=== PATIENT | male | born 1985 | race American Indian/Alaskan Native ===

== ENCOUNTER 2018-11-19 09:48 | Emergency (ER) | payer SELFPAY ==
[2018-11-19 10:01] VITALS: BP 138/86
--- NOTE | 2018-11-19 10:37 | Emergency Department Report ---
Blank Doc - Documentation Documentation: This is a 33-year-old male that presents with dental pain, sore throat with sw elling. Patient state he is currently taking amoxicillin that was here 3 days ago for a dental pain. He stated that it is getting worse appointment now that he has some difficulty breathing and able to open mouth. Upon exam patient has severe swelling and trismus. Patient was sent to the main ED for possible airway compromise. I did put in laboratory orders as well as CT scan with contrast of neck. Patient also is receiving clindamycin, Decadron, normal saline.
[2018-11-19] MEDS ORDERED: CLEOCIN IM ONE (11:12)
[2018-11-19] MEDS ORDERED: IBUPROFEN PO ONE (11:13)
--- NOTE | 2018-11-19 11:29 | Emergency Department Report ---
ED ENT HPI - General Chief complaint: Dental/Oral Stated complaint: NAUSE Time Seen by Provider: 11/19/18 10:01 Source: patient Mode of arrival: Ambulatory Limitations: No Limitations - History of Present Illness Initial comments: This is a 33-year-old male nontoxic, well nourished in appearance, no acute signs of distress presents to the ED with c/o of right lower toothache 3 weeks. Patient stated went to dentist and only taken 1 dose of amoxicillin but denies finishing medications. Patient describes toothache as aching level of 8 out of 10. Patient stated has some facial swelling. Patient denies any numbness, tingling, fever, chills, headache, stiff neck, abdominal pain, chest pain, shortness of breath. Patient denies any drug allergies or significant past medical history. MD complaint: tooth pain -: week(s) Location: tooth # 1 - pain here Severity: mild Severity scale (0 -10): 8 Quality: aching Consistency: constant Improves with: none Worsens with: none Context- Dental: history of dental caries, poor dental care Associated Symptoms: gum swelling, toothache. denies: fever, cough, pain with swallowing, sore throat, tinnitus, hearing loss, discharge from ear, rhinorrhea - Related Data Previous Rx's Medication Instructions Recorded Last Taken Type Acetaminophen/Codeine [Tylenol 1 tab PO Q6H PRN #12 tab 11/19/18 Unknown Rx /Codeine # 3 tab] Chlorhexidine Mouthwash [Peridex] 15 ml MM BID #1 bottle 11/19/18 Unknown Rx Clindamycin [Clindamycin CAP] 300 mg PO Q8H #21 cap 11/19/18 Unknown Rx Prednisone [predniSONE 10 mg 10 mg PO .TAPER #1 tab.ds.pk 11/19/18 Unknown Rx (6-Day Pack, 21 Tabs)] Allergies Allergy/AdvReac Type Severity Reaction Status Date / Time No Known Allergies Allergy Verified 11/19/18 10:01 ED Dental HPI - General Chief complaint: Dental/Oral Stated complaint: NAUSE Time Seen by Provider: 06/30/19 10:01 Source: patient Mode of arrival: Ambulatory Limitations: No Limitations - Related Data Previous Rx's Medication Instructions Recorded Last Taken Type Acetaminophen/Codeine [Tylenol 1 tab PO Q6H PRN #12 tab 11/19/18 Unknown Rx /Codeine # 3 tab] Chlorhexidine Mouthwash [Peridex] 15 ml MM BID #1 bottle 11/19/18 Unknown Rx Clindamycin [Clindamycin CAP] 300 mg PO Q8H #21 cap 11/19/18 Unknown Rx Prednisone [predniSONE 10 mg 10 mg PO .TAPER #1 tab.ds.pk 11/19/18 Unknown Rx (6-Day Pack, 21 Tabs)] Allergies Allergy/AdvReac Type Severity Reaction Status Date / Time No Known Allergies Allergy Verified 11/19/18 10:01 ED Review of Systems ROS: Stated complaint: NAUSE Other details as noted in HPI Constitutional: denies: chills, fever Eyes: denies: eye pain, eye discharge, vision change ENT: dental pain. denies: ear pain, throat pain Respiratory: denies: cough, shortness of breath, wheezing Cardiovascular: denies: chest pain, palpitations Endocrine: no symptoms reported Gastrointestinal: denies: abdominal pain, nausea, diarrhea Genitourinary: denies: urgency, dysuria Musculoskeletal: denies: back pain, joint swelling, arthralgia Skin: denies: rash, lesions Neurological: denies: headache, weakness, paresthesias Psychiatric: denies: anxiety, depression Hematological/Lymphatic: denies: easy bleeding, easy bruising ED Past Medical Hx - Past Medical History Previous Medical History?: Yes - Surgical History Past Surgical History?: No - Social History Smoking Status: Never Smoker Substance Use Type: Alcohol, Marijuana - Medications Home Medications: Home Medications Medication Instructions Recorded Confirmed Last Taken Type Acetaminophen/Codeine [Tylenol 1 tab PO Q6H PRN #12 tab 11/19/18 Unknown Rx /Codeine # 3 tab] Chlorhexidine Mouthwash [Peridex] 15 ml MM BID #1 bottle 11/19/18 Unknown Rx Clindamycin [Clindamycin CAP] 300 mg PO Q8H #21 cap 11/19/18 Unknown Rx Prednisone [predniSONE 10 mg 10 mg PO .TAPER #1 tab.ds.pk 11/19/18 Unknown Rx (6-Day Pack, 21 Tabs)] ED Physical Exam - General Limitations: No Limitations General appearance: alert, in no apparent distress - Head Head exam: Present: atraumatic, normocephalic - Expanded ENT Exam Expanded Ear exam: Present: normal external inspection Mouth exam: Present: normal external inspection, tongue normal. Absent: dr jordan, trismus, muffled voice Teeth exam: Present: dental caries, fractured tooth #, dental tenderness #, gingival enlargement, other (some lwoer mandible swelling with no induration or fluantce. No gingival abscess noted.) Throat exam: Positive: normal inspection, other (uvula midline.). Negative: tonsillar erythema, tonsillomegaly, tonsillar exudate, R peritonsillar mass, L peritonsillar mass - Neck Neck exam: Present: normal inspection, full ROM. Absent: tenderness, meningismus, lymphadenopathy - Extremities Exam Extremities exam: Present: normal inspection, full ROM - Back Exam Back exam: Present: normal inspection, full ROM - Neurological Exam Neurological exam: Present: alert, oriented X3 - Psychiatric Psychiatric exam: Present: normal affect, normal mood - Skin Skin exam: Present: warm, dry, intact, normal color. Absent: rash ED Course Vital Signs 11/19/18 09:59 Temperature 98.4 F Pulse Rate 77 Respiratory 18 Rate Blood Pressure 138/86 O2 Sat by Pulse 100 Oximetry - Reevaluation(s) Reevaluation #1: 11/19/18 11:27 Patient is speaking in full sentences with no signs of distress noted. ED Medical Decision Making - Medical Decision Making This is a 33-year-old male that presents with gingivitis and dental caries. Patient is stable and was examined by me. There is slight swelling to the right lower mandible. There is currently not abscess formation, no induration or fluctuance. No pus or drainage. I did give patient clindamycin 600 mg IM in the ED and patient is discharged with clindamycin. He had strict instructions to follow-up with oral maxillary surgeon in 24 hours or if symptoms would worsen to return to emergency room as was possible. Patient is discharged with Ultram, Peridex and Clinda. Patient was instructed not to operate any machinery when taking Ultram due to drowsiness. At time of discharge, the patient does not seem toxic or ill in appearance. No acute signs of distress noted. Patient agrees to discharge treatment plan of care. No further questions noted by the patient. Critical care attestation.: If time is entered above; I have spent that time in minutes in the direct care of this critically ill patient, excluding procedure time. ED Disposition Clinical Impression: Dental caries, Gingivitis Disposition: TO HOME OR SELFCARE Is pt being admited?: No Does the pt Need Aspirin: No Condition: Stable Instructions: Dental Caries (ED), Gingivitis (ED), Acetaminophen/Codeine (By mouth) Additional Instructions: Follow-up with a oral maxillary surgery in 24 hours or if symptoms worsen and continue return to emergency room as soon as possible. Do not operate any machinery while taking Tylenol with codeine as this may cause drowsiness. [facility] [employer] Address: [address], [place] [address] Hours: Tuesday Closed Tuesday 8AM-1PM, 2-5PM Tuesday 8AM-1PM, 2-5PM Tuesday 8AM-1PM, 2-5PM 8AM-1PM, 2-5PM Tuesday 7AM-2PM Tuesday Closed Prescriptions: Clindamycin [Clindamycin CAP] 300 mg PO Q8H #21 cap Chlorhexidine Mouthwash [Peridex] 15 ml MM BID #1 bottle Prednisone [predniSONE 10 mg (6-Day Pack, 21 Tabs)] 10 mg PO .TAPER #1 tab.ds.pk Acetaminophen/Codeine [Tylenol /Codeine # 3 tab] 1 tab PO Q6H PRN #12 tab PRN Reason: Pain , Severe (7-10) Referrals: KELIN SMALLWOOD MD [Primary Care Provider] - 3-5 Days PRIMARY CAREMD [Referring] - 3-5 Days MICHELLE EHRNANDEZ MD [Staff Physician] - 3-5 Days [facility] [Outside] - 3-5 Days Forms: Work/School Release Form(ED)
== END 2018-11-19 12:05 | disposition home or self-care (01) ==
LOC: ED 09:48
DX: K02.9 Dental caries, unspecified (principal); K05.10 Chronic gingivitis, plaque induced
CPT/HCPCS: 96372; 99282

== ENCOUNTER 2019-02-16 08:09 | Emergency (ER) | payer SELFPAY ==
[2019-02-16] MEDS ORDERED: SODIUM CHLORIDE 0.9% 1000 ML 1,000 ML IV ONE ×2 (08:45→09:58)
[2019-02-16] MEDS ORDERED: ONDANSETRON 4 MG/2 ML INJ IV ONE (08:45)
--- NOTE | 2019-02-16 08:46 | Emergency Department Report ---
HPI - General Chief Complaint: Nausea/Vomiting/Diarrhea Time Seen by Provider: 02/16/19 08:43 - HPI HPI: 34 YO AA MALE COMES TO ER CO N/V TODAY. HE WALKED OUT OF WORK AND WHEN THE FRESH AIR HIT HIM HE STARTED VOMITING. IN TRIAGE HE WAS COUGHING/GAGGING/VOMITING. NO FEVER. no diarrhea. no one around him is ill. 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 PMH NONE PSH NONE HOME RX NONE THC- LAST 48 H AGO; ITS GOOD FOR HIM HE SAYS BECAUSE IT COMES FROM THE GROUND ETOH NO ABD PAIN. NO FEVER OR CHILLS. NO BACK PAIN. TOOK NOTHING COLLECTIONS ATTORNEY FOR HIS VOMITING ED Past Medical Hx - Past Medical History Previous Medical History?: No - Surgical History Past Surgical History?: No - Family History Family history: no significant - Social History Smoking Status: Never Smoker Substance Use Type: Alcohol, Marijuana - Medications Home Medications: Home Medications Medication Instructions Recorded Confirmed Last Taken Type Benzonatate [Tessalon Perles] 100 mg PO BID PRN #10 capsule 02/16/19 Unknown Rx Ondansetron [Zofran Odt] 4 mg PO Q8HR PRN #10 tab.rapdis 02/16/19 Unknown Rx ED Review of Systems ROS: Stated complaint: CHEST PAIN/FEVER/HEADACHE Other details as noted in HPI Comment: All other systems reviewed and negative Physical Exam - Physical Exam Vital Signs: Vital Signs 02/16/19 08:19 Temperature 97.8 F Pulse Rate 78 Respiratory 16 Rate Blood Pressure 132/94 [Left] O2 Sat by Pulse 100 Oximetry Physical Exam: ALERT AND ORIENTED NO FOCAL DEFICIT S1S2 LUNGS CTA ABD SNT NO CVA TENDERNESS NO EDEMA NO JVD NO ASCITIES NO JAUNDICE ED Course Vital Signs 02/16/19 08:19 Temperature 97.8 F Pulse Rate 78 Respiratory 16 Rate Blood Pressure 132/94 [Left] O2 Sat by Pulse 100 Oximetry - Reevaluation(s) Reevaluation #1: 02/16/19 10:38 DRANK 2 JUICE AND 4 PACKS CRACKERS WITHOUT N/V ED Medical Decision Making - Lab Data Result diagrams: 02/16/19 08:41 02/16/19 08:41 - Medical Decision Making Lab Results 02/16/19 02/16/19 02/16/19 Range/Units 08:41 08:41 09:12 WBC 5.6 (4.5-11.0) K/mm3 RBC 6.25 H (3.65-5.03) M/mm3 Hgb 13.9 (11.8-15.2) gm/dl Hct 44.4 (35.5-45.6) % MCV 71 L (84-94) fl MCH 22 L (28-32) pg MCHC 31 L (32-34) % RDW 15.6 H (13.2-15.2) % Plt Count 221 (140-440) K/mm3 Sodium 144 (137-145) mmol/L Potassium 3.9 (3.6-5.0) mmol/L Chloride 103.9 (98-107) mmol/L Carbon Dioxide 26 (22-30) mmol/L Anion Gap 18 mmol/L BUN 16 (9-20) mg/dL Creatinine 0.8 (0.8-1.5) mg/dL Estimated GFR > 60 ml/min BUN/Creatinine Ratio 20 % Glucose 88 (75-100) mg/dL Calcium 9.6 (8.4-10.2) mg/dL Total Bilirubin 0.30 (0.1-1.2) mg/dL AST 25 (5-40) units/L ALT 20 (7-56) units/L Alkaline Phosphatase 60 (35-129) units/L Total Protein 7.4 (6.3-8.2) g/dL Albumin 4.5 (3.9-5) g/dL Albumin/Globulin Ratio 1.6 % Lipase 11 L (13-60) units/L Urine Color Yellow (Yellow) Urine Turbidity Clear (Clear) Urine pH 7.0 (5.0-7.0) Ur Specific [place] 1.031 H (1.003-1.030) Urine Protein 30 mg/dl (Negative) mg/dL Urine Glucose (UA) Neg (Negative) mg/dL Urine Ketones Tr (Negative) mg/dL Urine Blood Neg (Negative) Urine Nitrite Neg (Negative) Urine Bilirubin Neg (Negative) Urine Urobilinogen < 2.0 (<2.0) mg/dL Ur Leukocyte Esterase Neg (Negative) Urine WBC (Auto) 2.0 (0.0-6.0) /HPF Urine RBC (Auto) 5.0 (0.0-6.0) /HPF Urine Mucus 3+ /HPF Vital Signs 02/16/19 08:19 Temperature 97.8 F Pulse Rate 78 Respiratory 16 Rate Blood Pressure 132/94 [Left] O2 Sat by Pulse 100 Oximetry labs noted ua noted PT HAS NO DIARRHEA PT HAS NO DYSURIA OR BACK PAIN; NO HEMATURIA NS 2L/ zofran after meds pt reports feeling better 1015 pt taking PO without n/v. We have had a long discussion about THC and possible link to N/V Pt requesting something for his cough which seems to be induced by RN being in the room. When left alone he does not cough. When she comes to room he coughs. lungs cta. no hx asthma. We have discussed the use of a safety mask when at work due to his concerns regarding his cough at work. 1040 on dc VSS. no fever. taking po. non toxic and non ill appearing. Dc home with dc plan of care and pcp follow up - Differential Diagnosis GASTROENTERITIS/ACUTE VOMITING/ K STONE Critical care attestation.: If time is entered above; I have spent that time in minutes in the direct care of this critically ill patient, excluding procedure time. ED Disposition Clinical Impression: Vomiting, Cough Disposition: DC-01 TO HOME OR SELFCARE Is pt being admited?: No Does the pt Need Aspirin: No Condition: Stable Instructions: Acute Nausea and Vomiting (ED) Additional Instructions: HYDRATE WELL WITH WATER MED ORDERED FOR NAUSEA AVOID SPICY FOOD, MARIJUANNA AND ALCOHOL FOLLOW UP WITH PCP TUESDAY IF THIS PERSISTS REFERRAL BELOW ALL LABS NORMAL TODAY Prescriptions: Benzonatate [Tessalon Perles] 100 mg PO BID PRN #10 capsule PRN Reason: Cough Ondansetron [Zofran Odt] 4 mg PO Q8HR PRN #10 tab.rapdis PRN Reason: Vomiting Referrals: PRIMARY CAREMD [Primary Care Provider] - 3-5 Days LINDA PARTIDA MD [Staff Physician] - 3-5 Days Time of Disposition: 10:27
[2019-02-16 09:18] LABS: Hematocrit 44.4 % (35.5-45.6); Hemoglobin 13.9 gm/dl (11.8-15.2); Mean Corpuscular HGB Conc 31 % (32-34); Mean Corpuscular Volume 71 fl (84-94); Platelet Count 221 K/mm3 (140-440); Red Blood Count 6.25 M/mm3 (3.65-5.03); Red Cell Distribution Width 15.6 % (13.2-15.2)
[2019-02-16 09:27] LABS: Alanine Aminotransferase 20 units/L (7-56); Albumin 4.5 g/dL (3.9-5); BUN/Creatinine Ratio 20; Blood Urea Nitrogen 16 mg/dL (9-20); Calcium 9.6 mg/dL (8.4-10.2); Hemolysis Index 3
[2019-02-16 09:35] LABS: Bilirubin,Urine NEG (Negative); Blood,Urine NEG (Negative); Color,Urine Yellow (Yellow); Mucus,Urine 3+ /HPF; Urobilinogen,Urine < 2.0 mg/dL (<2.0)
[2019-02-16 10:48] VITALS: BP 126/75
== END 2019-02-16 10:47 | disposition home or self-care (01) ==
LOC: ED 08:09
DX: R11.2 Nausea with vomiting, unspecified (principal); R05 Cough; F12.10 Cannabis abuse, uncomplicated
CPT/HCPCS: 36415; 80053; 81001; 83690; 85027; 96361; 96374; 99283; J2405; J7030